=== PATIENT | female | born 1985 | race American Indian/Alaskan Native ===

== ENCOUNTER 2019-01-12 21:36 | Emergency (ER) | payer MEDICAID ==
--- NOTE | 2019-01-12 22:16 | Emergency Department Report ---
Blank Doc - Documentation Documentation: 33 y o female presents to ed cc of fever andfeeling fatigue x 2 days states bayron gher had flu last week labs, ua cxr acc eval
[2019-01-12 23:11] LABS: Hematocrit 36.5 % (30.3-42.9); Hemoglobin 12.6 gm/dl (10.1-14.3); Mean Corpuscular HGB Conc 35 % (30-34); Mean Corpuscular Volume 93 fl (79-97); Platelet Count 227 K/mm3 (140-440); Red Blood Count 3.94 M/mm3 (3.65-5.03); Red Cell Distribution Width 14.6 % (13.2-15.2)
[2019-01-12 23:20] LABS: Bilirubin,Urine NEG (Negative); Blood,Urine LG (Negative); Color,Urine Yellow (Yellow); Mucus,Urine FEW /HPF; Urobilinogen,Urine < 2.0 mg/dL (<2.0)
[2019-01-12 23:25] LABS: Calcium 8.7 mg/dL (8.4-10.2)
--- NOTE | 2019-01-13 00:17 | XRay Report ---
PROCEDURE: XR CHEST ROUTINE 2V TECHNIQUE: PA and lateral chest radiographs were obtained. HISTORY: cough/fever COMPARISONS: None. FINDINGS: Heart: Normal. Mediastinum/Vessels: Normal. Lungs/Pleural space: Normal. Bony thorax: No acute osseous abnormality. IMPRESSION: Normal examination. This document is electronically signed by Cookie Harris DO., January 13 2019 12:16:22 AM ET
--- NOTE | 2019-01-13 01:17 | Emergency Department Report ---
Minor Respiratory - HPI Chief Complaint: Fever Stated Complaint: FEVER, COUGH Time Seen by Provider: 01/12/19 22:12 Duration: 4 Days Minor Respiratory: Yes Sore Throat, Yes Cough, Yes Sick Contacts, Yes Fever, No Rhinorrhea, No Able to Tolerate Fluids, No Ear Pain, No Hemoptysis, No Chest Pain, No Shortness of Breath Other History: 33-year-old -[place] female presents to the emergency room for 4 days of cough with fever she reports diarrhea nausea and vomited 2 times today. Patient reports that she does have a sick contact at home which is her daughter that was seen on Wednesday. Patient first not able to hold anything down and she is having nausea at this time. Patient also complains of sore throat and feels like something is in her throat she is not able to cough out. ED Review of Systems ROS: Stated complaint: FEVER, COUGH Other details as noted in HPI Comment: All other systems reviewed and negative Constitutional: chills, fever Eyes: denies: eye pain, eye discharge, vision change ENT: throat pain Respiratory: cough Cardiovascular: denies: chest pain, palpitations Endocrine: no symptoms reported Gastrointestinal: nausea, vomiting Genitourinary: denies: urgency, dysuria, discharge Musculoskeletal: myalgia. denies: back pain, joint swelling, arthralgia Skin: denies: rash, lesions Neurological: headache ED Past Medical Hx - Past Medical History Previous Medical History?: No - Surgical History Past Surgical History?: Yes Additional Surgical History: Tubal Ligation - Social History Smoking Status: Never Smoker Substance Use Type: None - Medications Home Medications: Home Medications Medication Instructions Recorded Confirmed Last Taken Type Clarithromycin [Biaxin] 500 mg PO BID #14 tab 01/13/19 Unknown Rx Minor Respiratory Exam - Exam General: Vital signs noted. No distress. Alert and acting appropriately. HEENT: Yes Pharyngeal Erythema, Yes Pharyngeal Exudates, Yes Moist Mucous Membranes, No Rhinorrhea, No Conjuctival Injection, No Frontal Tenderness, No Maxillary Tenderness Neck: Yes Adenopathy (with mild exudate.), Yes Supple Lungs: Yes Good Air Exchange, No Wheezes, No Ronchi, No Stridor, No Cough, No Labored Respirations, No Retractions, No Use of Accessory Muscles, No Other Abnormal Lung Sounds Heart: Yes Regular, No Murmur Abdomen: Yes Normal Bowel Sounds, No Tenderness, No Peritoneal Signs Skin: No Rash, No Edema Neurologic: Alert and oriented, no deficits. Musculoskeletal: Unremarkable. ED Course Vital Signs 01/12/19 22:11 Temperature 99.2 F Pulse Rate 85 Respiratory 18 Rate Blood Pressure 141/86 O2 Sat by Pulse 97 Oximetry ED Medical Decision Making - Lab Data Result diagrams: 01/12/19 22:57 01/12/19 22:57 - Radiology Data Radiology results: report reviewed Patient: LISET LONGORIA MR#: [id number] : 1985 Acct:[id number] Age/Sex: 33 / F ADM Date: 01/12/19 Loc: ED Attending Dr: Ordering Physician: PREET OVALLE Date of Service: 01/12/19 Procedure(s): XR chest routine 2V Accession Number(s): [id number] cc: PREET OVALLE Fluoro Time In Minutes: PROCEDURE: XR CHEST ROUTINE 2V TECHNIQUE: PA and lateral chest radiographs were obtained. HISTORY: cough/fever COMPARISONS: None. FINDINGS: Heart: Normal. Mediastinum/Vessels: Normal. Lungs/Pleural space: Normal. Bony thorax: No acute osseous abnormality. IMPRESSION: Normal examination. This document is electronically signed by Sonya Harris DO., January 13 2019 12:16:22 AM ET Transcribed By: [facility] Dictated By: SONYA HARRIS MD Electronically Authenticated By: SONYA HARRIS MD Signed Date/Time: 01/13/19 0017 DD/ 58 TD/TT: 01/12/192358 - Medical Decision Making Patient has been evaluated by this provider in fast track. Chest x-ray shows normal examination Patient is given Zofran ODT for nausea and by mouth challenge started. Patient reports that she's been taking ibuprofen for pain management but she has ibuprofen as her allergy. Patient be given Tylenol for fever and pain management. Critical care attestation.: If time is entered above; I have spent that time in minutes in the direct care of this critically ill patient, excluding procedure time. ED Disposition Clinical Impression: Viral syndrome Pharyngitis Qualifiers: Pharyngitis/tonsillitis etiology: unspecified etiology Qualified Code(s): J02.9 - Acute pharyngitis, unspecified Disposition: DC-01 TO HOME OR SELFCARE Is pt being admited?: No Does the pt Need Aspirin: No Condition: Stable Instructions: Viral Syndrome (ED) Additional Instructions: Increase her fluid intake Tylenol and/or Motrin for fever and muscle myalgia. Advance diet as tolerated. Prescriptions: Clarithromycin [Biaxin] 500 mg PO BID #14 tab Referrals: [facility] [Provider Group] - 3-5 Days Forms: Work/School Release Form(ED)
[2019-01-13] MEDS ORDERED: ZOFRAN ODT PO ONE (01:18)
[2019-01-13] MEDS ORDERED: TYLENOL PO ONE (01:21)
[2019-01-13 02:27] VITALS: BP 136/89
[2019-01-13 04:42] LABS: Basophils % (Manual) 0 % (0.0-1.8); Eosinophils % (Manual) 0 % (0.0-4.3); Total Cells Counted 100
[2019-01-13 04:43] LABS: Anisocytosis 1+; Platelet Estimate Consistent w Auto
== END 2019-01-13 03:20 | disposition home or self-care (01) ==
LOC: ED 21:36
DX: B34.9 Viral infection, unspecified (principal); J02.9 Acute pharyngitis, unspecified; Z98.51 Tubal ligation status; Z88.6 Allergy status to analgesic agent; Z88.0 Allergy status to penicillin
CPT/HCPCS: 36415; 71046; 80048; 81001; 84703; 85007; 85025; Q0162

== ENCOUNTER 2019-10-08 01:26 | Emergency (ER) | payer SELFPAY ==
[2019-10-08] MEDS ORDERED: ACETAMINOPHEN 500 MG TAB ONE (02:11)
[2019-10-08 03:12] LABS: Bilirubin,Urine NEG (Negative); Blood,Urine LG (Negative); Color,Urine Yellow (Yellow); Mucus,Urine FEW /HPF; Protein,Urine <15 mg/dL mg/dL (Negative); Urobilinogen,Urine < 2.0 mg/dL (<2.0)
[2019-10-08 03:15] LABS: RBC,Urine > 182.0 /HPF (0.0-6.0)
--- NOTE | 2019-10-08 03:42 | XRay Report ---
CHEST 2 VIEWS, 10/08/2019 2:39 AM INDICATION: Cough COMPARISON: Chest radiograph, 01/20/2019 FINDINGS: Support devices: None Heart: The cardiac silhouette is normal in size. Lungs/pleura: The lungs are clear of focal airspace disease or significant pleural effusion. The inde terminate 4 mm nodular density within the right upper lobe is again noted. Additional findings: Evaluation of bony structures demonstrates no evidence of acute bony abnormality . IMPRESSION: 1. No evidence of acute cardiopulmonary process. Signer Name: Nataliia Oakes MD Signed: 10/08/2019 3:38 AM Workstation Name: [id number]
[2019-10-08] MEDS ORDERED: ACETAMINOPHEN 500 MG TAB PO ONE (04:09)
[2019-10-08] MEDS ORDERED: ONDANSETRON 4 MG ODT TAB PO ONE (04:09)
[2019-10-08] MEDS ORDERED: predniSONE 20 MG TAB PO ONE (04:09)
--- NOTE | 2019-10-08 05:27 | Emergency Department Report ---
- General Chief Complaint: Upper Respiratory Infection Stated Complaint: FLU SYMPTOMS Source: patient, EMS Mode of arrival: Ambulatory Limitations: No Limitations - History of Present Illness Initial Comments: Patient is a 34 year-old female with a history of hypertension who presents to the ED with complaint of acute onset persistent severe diffuse body aches and pains, intermittent fever up to 103F, chills, nasal and sinus congestion, frontal sinus pressure and headache, sore throat, persistent dry cough and generalized weakness and fatigue for the last 24 hours. Patient denies dizziness, syncope, chest pain, shortness of breath, abdominal pain, dysuria, urinary frequency and urgency, vision changes, syncope, palpitations or loss of consciousness. MD Complaint: fever, cough, sore throat, rhinorrhea, nasal congestion, sinus pain, other (diffuse body aches and pains) -: Sudden, hour(s) (24) Severity: severe Severity scale (0 -10): 8 Quality: sharp, aching Consistency: constant Improves With: nothing Worsens With: nothing Context: sick contacts Associated Symptoms: denies other symptoms, fever, chills, myalgias, headache, rhinorrhea, nasal congestion, cough. denies: diaphoresis, stiff neck, chest pain, shortness of breath, abdominal pain, nausea, vomiting, diarrhea, dysuria, rash, confusion, right sweats, weight loss, epistaxis, hoarseness, ear pain Treatments Prior to Arrival: none - Related Data Previous Rx's Medication Instructions Recorded Last Taken Type Clarithromycin [Biaxin] 500 mg PO BID #14 tab 01/13/19 Unknown Rx ALBUTEROL Inhaler(NF) [VENTOLIN 2 puff IH Q4H PRN #1 inha 01/21/19 Unknown Rx Inhaler(NF)] Acetaminophen [Tylenol Extra 1,000 mg PO QID PRN #30 tablet 01/21/19 Unknown Rx Strength] Codeine Phosphate/Guaifenesin 5 ml PO TID PRN #120 ml 01/21/19 Unknown Rx [Guaifenesin-Codeine Syrup] Acetaminophen [Acetaminophen TAB] 500 mg PO Q6HR PRN #30 tablet 10/08/19 Unknown Rx Azithromycin [Zithromax Z-JAQUELINE] 250 mg PO DAILY #6 tablet 10/08/19 Unknown Rx Benzonatate [Tessalon Perles] 100 mg PO Q8HR #30 capsule 10/08/19 Unknown Rx Cetirizine HCl [Zyrtec 10mg tab] 10 mg PO DAILY #30 tablet 10/08/19 Unknown Rx methylPREDNISolone [Medrol 4MG 4 mg PO DAILY #21 tab.ds.pk 10/08/19 Unknown Rx DOSEPAK (21 tabs)] Allergies Allergy/AdvReac Type Severity Reaction Status Date / Time aspirin Allergy Hives Verified 01/12/19 21:40 ibuprofen [From Motrin] Allergy Hives Verified 01/12/19 21:40 Penicillins Allergy Hives Verified 01/12/19 21:40 flu shot Allergy Shortness Uncoded 01/20/19 20:03 of Breath ED Review of Systems ROS: Stated complaint: FLU SYMPTOMS Other details as noted in HPI Constitutional: chills, fever, malaise Eyes: denies: eye pain, eye discharge, vision change ENT: throat pain, congestion. denies: ear pain Respiratory: cough. denies: shortness of breath, wheezing Cardiovascular: denies: chest pain, palpitations Endocrine: no symptoms reported Gastrointestinal: denies: abdominal pain, nausea, vomiting, diarrhea Genitourinary: denies: urgency, dysuria, frequency, discharge Musculoskeletal: back pain, arthralgia, myalgia. denies: joint swelling Skin: denies: rash, lesions Neurological: headache. denies: weakness, paresthesias Psychiatric: denies: anxiety, depression Hematological/Lymphatic: denies: easy bleeding, easy bruising ED Past Medical Hx - Past Medical History Previous Medical History?: Yes Hx Sickle Cell Disease: Yes (Sickle Cell Trait) - Surgical History Past Surgical History?: Yes Additional Surgical History: Tubal Ligation - Social History Smoking Status: Never Smoker Substance Use Type: None - Medications Home Medications: Home Medications Medication Instructions Recorded Confirmed Last Taken Type Clarithromycin [Biaxin] 500 mg PO BID #14 tab 01/13/19 Unknown Rx ALBUTEROL Inhaler(NF) [VENTOLIN 2 puff IH Q4H PRN #1 inha 01/21/19 Unknown Rx Inhaler(NF)] Acetaminophen [Tylenol Extra 1,000 mg PO QID PRN #30 tablet 01/21/19 Unknown Rx Strength] Codeine Phosphate/Guaifenesin 5 ml PO TID PRN #120 ml 01/21/19 Unknown Rx [Guaifenesin-Codeine Syrup] Acetaminophen [Acetaminophen TAB] 500 mg PO Q6HR PRN #30 tablet 10/08/19 Un known Rx Azithromycin [Zithromax Z-JAQUELINE] 250 mg PO DAILY #6 tablet 10/08/19 Unknown Rx Benzonatate [Tessalon Perles] 100 mg PO Q8HR #30 capsule 10/08/19 Unknown Rx Cetirizine HCl [Zyrtec 10mg tab] 10 mg PO DAILY #30 tablet 10/08/19 Unknown Rx methylPREDNISolone [Medrol 4MG 4 mg PO DAILY #21 tab.ds.pk 10/08/19 Unknown Rx DOSEPAK (21 tabs)] ED Physical Exam - General Limitations: No Limitations General appearance: alert, in no apparent distress - Head Head exam: Present: atraumatic, normocephalic, normal inspection - Eye Eye exam: Present: normal appearance, PERRL, EOMI Pupils: Present: normal accommodation - ENT ENT exam: Present: mucous membranes moist, other (grossly congested nasal passages; palpable frontal sinus tenderness and mildly erythematous oropharynx) - Neck Neck exam: Present: normal inspection, full ROM. Absent: tenderness, lymphadenopathy - Respiratory Respiratory exam: Present: normal lung sounds bilaterally. Absent: respiratory distress, wheezes, rales, rhonchi, chest wall tenderness - Cardiovascular Cardiovascular Exam: Present: normal rhythm, tachycardia, normal heart sounds. Absent: systolic murmur, diastolic murmur, rubs, gallop - GI/Abdominal GI/Abdominal exam: Present: soft, normal bowel sounds. Absent: tenderness, guarding, rebound, hyperactive bowel sounds, hypoactive bowel sounds, organomegaly - Extremities Exam Extremities exam: Present: normal inspection, full ROM, normal capillary refill - Back Exam Back exam: Present: normal inspection, full ROM. Absent: tenderness, CVA tenderness (R), muscle spasm, paraspinal tenderness - Neurological Exam Neurological exam: Present: alert, oriented X3, CN II-XII intact, normal gait, reflexes normal - Psychiatric Psychiatric exam: Present: normal affect, normal mood - Skin Skin exam: Present: warm, dry, intact, normal color. Absent: rash ED Course Vital Signs 10/08/19 10/08/19 01:30 04:29 Temperature 102.9 F H Pulse Rate 105 H Respiratory 18 16 Rate Blood Pressure 140/90 O2 Sat by Pulse 99 Oximetry ED Medical Decision Making - Radiology Data Radiology results: report reviewed, image reviewed Chest x-ray shows no acute cardiopulmonary abnormalities or pneumonitis. - Medical Decision Making This is a 34-year-old female who presented to the ED with flulike symptoms characterized by nasal and sinus congestion, frontal sinus pressure and headache, sore throat, severe diffuse body aches and pains, dry cough, int ermittent fever of up 103F with chills and lack of appetite for the last 24 hours. In the ED, patient is alert and oriented 3 and is not in distress but appears to be in pain, febrile and tachycardic in triage. Patient did not take any medications prior to arrival in the ED. Chest x-ray shows no acute cardiopulmonary abnormalities or pneumonitis. Patient was treated for fever and pain in the ED. On reevaluation, patient's fever resolved and her tachycardia also resolved. Patient was discharged home on medications and advised to follow-up with her primary care physician in 5-7 days for reevaluation or return to the ED immediately if symptoms get worse. - Differential Diagnosis Flu; Strep Pharyngitis; Pneumonia; URI; Sinusitis Critical care attestation.: If time is entered above; I have spent that time in minutes in the direct care of this critically ill patient, excluding procedure time. ED Disposition Clinical Impression: Fever and chills, Influenza Acute frontal sinusitis Qualifiers: Recurrence: non-recurrent Qualified Code(s): J01.10 - Acute frontal sinusitis, unspecified Acute bronchitis Qualifiers: Bronchitis organism: other organism Qualified Code(s): J20.8 - Acute bronchitis due to other specified organisms Disposition: DC-01 TO HOME OR SELFCARE Is pt being admited?: No Does the pt Need Aspirin: No Condition: Stable Instructions: Acute Bronchitis (ED), Acute Bacterial Rhinosinusitis (ED), Influenza (ED), Fever in Adults (ED), Upper Respiratory Infection (ED) Additional Instructions: Take medications with food, drink plenty of fluids and [facility] with [facility] in 7-10 days for reevaluation. Return to the ED immediately if symptoms get worse. Prescriptions: Acetaminophen [Acetaminophen TAB] 500 mg PO Q6HR PRN #30 tablet PRN Reason: Fever >101 methylPREDNISolone [Medrol 4MG DOSEPAK (21 tabs)] 4 mg PO DAILY #21 tab.ds.pk Benzonatate [Tessalon Perles] 100 mg PO Q8HR #30 capsule Azithromycin [Zithromax Z-JAQUELINE] 250 mg PO DAILY #6 tablet Cetirizine HCl [Zyrtec 10mg tab] 10 mg PO DAILY #30 tablet Referrals: JELLY DEVI MD [Staff Physician] - 7-10 days Forms: Work/School Release Form(ED) Time of Disposition: 05:29 Print Language: UKRAINIAN
[2019-10-08 06:31] VITALS: BP 128/79
== END 2019-10-08 06:10 | disposition home or self-care (01) ==
LOC: ED 01:26
DX: J01.10 Acute frontal sinusitis, unspecified (principal); J20.9 Acute bronchitis, unspecified; J11.1 Influenza due to unidentified influenza virus with other respiratory manifestations; Z98.51 Tubal ligation status; Z88.0 Allergy status to penicillin; Z88.8 Allergy status to other drugs, medicaments and biological substances; Z79.899 Other long term (current) drug therapy
CPT/HCPCS: 71046; 81001; 87400; 99284; J7512; Q0162